=== PATIENT | female | born 1965 | race Two or more races ===

== ENCOUNTER 2018-08-20 05:25 | Observation (INO) | payer BC ==
[2018-08-20] MEDS ORDERED: NS 0.9% 1000 ML** 1,000 ML IV ONE ×2 (05:38→08:52)
[2018-08-20] MEDS ORDERED: Ondansetron INJ* 2 MG/ML VIAL IV ONE (05:38)
[2018-08-20] MEDS ORDERED: Morphine 4 MG/ML VIAL (1 ml) 4 MG/ML VIAL IV ONE ×3 (05:38→08:52)
[2018-08-20 06:07] LABS: ABS Basophils 0 10^3/ul (0-0.2); ABS Eosinophils 0 10^3/ul (0-0.6); ABS Lymphocytes 1.3 10^3/ul (1.0-4.8); ABS Monocytes 0.2 10^3/ul (0-0.8); ABS Neutrophils 6.2 10^3/ul (1.5-7.7); ABS Nucleated RBC 0 10^3/ul; Eosinophil % 0.5 %; Hematocrit 41 % (33-41); Hemoglobin 13.7 g/dL (12.0-16.0); Lymphocyte % 17.1 %; Mean Corpuscular HGB Conc 34 g/dL (31-36); Mean Corpuscular Hemoglobin 30 pg (27-31); Mean Corpuscular Volume 89 fL (80-97); Mean Platelet Volume 8.2 fL (7.4-10.4); Nucleated Red Blood Cells % 0; Platelet Count 215 10^3/uL (150-450); Red Blood Count 4.54 10^6 /uL (3.70-4.87); Red Cell Distribution Width 13 % (10.5-15); White Blood Count 7.8 10^3/uL (3.5-10.8)
[2018-08-20 06:15] LABS: INR 0.86 (0.77-1.02)
[2018-08-20 06:29] LABS: Albumin 3.9 g/dL (3.2-5.2); Albumin/Globulin Ratio 1.4 (1-3); BUN/Creatinine Ratio 33.9 (8-20); C Reactive Protein 3.07 mg/L (<8.01); Calcium 9.2 mg/dL (8.6-10.3); EGFR African American 121.4 (>60); EGFR Non-African American 100.3 (>60); Globulin 2.7 g/dL (2-4); Potassium 3.7 mmol/L (3.5-5.0); Total Bilirubin 0.5 mg/dL (0.2-1.0); Total Protein 6.6 g/dL (6.4-8.9)
[2018-08-20] MEDS ORDERED: Iohexol 300* (CONTRAST) 10 ML SDV IV ONE (06:35)
[2018-08-20 06:54] LABS: Urine Appearance Clear; Urine Bilirubin Negative (Negative); Urine Blood Negative (Negative); Urine Color Yellow; Urine Glucose Negative (Negative); Urine Ketones Negative (Negative); Urine Nitrite Negative (Negative); Urine Protein Negative (Negative); Urine Urobilinogen Negative (Negative)
--- NOTE | 2018-08-20 09:17 | ED ---
Abdominal Pain/Female - HPI Summary HPI Summary: Patient is a 52-year-old female presenting to the ED with mid abdominal pain which is severe in nature which started occurring 1 hour after eating [place] food. She states she ate this food at about 11 PM and states at midnight she began to feel severe abdominal pain. She denies any nausea or vomiting. Denies any constipation or diarrhea. Last bowel movement was yesterday and she had approximately 2-3 bowel movements which were small and hard. She denies any history of constipation. She does have a history of a gastric sleeve for years ago by a general surgeon, Dr. Dobson in [place]. She states she has not had any issues since her gastric sleeve surgery and has had no history of bowel obstructions or known adhesions. She denies any fevers, sweats, chills. She denies any CP or SOB. She states she continues to pass gas and denies any burping. She feels there may be a piece of food that is stuck due to her gastric sleeve. She is otherwise healthy and takes no medications regularly. - History of Current Complaint Chief Complaint: EDAbdPain Stated Complaint: ABD PAIN PER PT Time Seen by Provider: 08/20/18 05:31 Hx Obtained From: Patient ?: No Onset/Duration: Sudden Onset Timing: Constant Severity Initially: Severe Severity Currently: Severe Pain Intensity: 10 Pain Scale Used: 0-10 Numeric Location: Diffuse Radiates: No Character: Sharp Aggravating Factor(s): Nothing Alleviating Factor(s): Nothing - Risk Factors Ectopic Risk Factor: Negative Ovarian Torsion Risk Factor: Negative Allergies/Adverse Reactions: Allergies Allergy/AdvReac Type Severity Reaction Status Date / Time codeine Allergy Unknown Verified 08/20/18 06:11 Reaction Details NSAIDS (Non-Steroidal Allergy See Comment Verified 08/20/18 05:28 Anti-Inflamma ofloxacin Allergy Unknown Verified 08/20/18 06:11 Reaction Details anesthesia Allergy Unknown Uncoded 08/20/18 05:27 Reaction Details Home Medications: Home Medications Multivitamin [Multivitamins] 1 cap PO DAILY 08/20/18 [History Confirmed 08/20/18 ] PMH/Surg Hx/FS Hx/Imm Hx Previously Healthy: Yes Endocrine/Hematology History: Denies: Hx Diabetes Cardiovascular History: Denies: Hx Hypertension History: Denies: Hx Renal Disease - Cancer History Hx Chemotherapy: No Hx Radiation Therapy: No - Surgical History Surgery Procedure, Year, and Place: GASTRIC SLEEVE 2014 - Immunization History Hx Pertussis Vaccination: No Immunizations Up to Date: Yes Infectious Disease History: No Infectious Disease History: Denies: Traveled Outside the [place] in Last 30 Days - Social History Occupation: Employed Full-time Lives: With Family Alcohol Use: None Hx Substance Use: No Substance Use Type: Reports: None Hx Tobacco Use: No Smoking Status (MU): Never Smoked Tobacco Review of Systems Constitutional: Negative Negative: Fever, Chills, Fatigue, Skin Diaphoresis Negative: Palpitations, Chest Pain Negative: Shortness Of Breath, Cough Positive: Abdominal Pain - diffuse. Negative: Vomiting, Diarrhea, Nausea Genitourinary: Negative Positive: no symptoms reported, see HPI Negative: Arthralgia, Myalgia Skin: Negative All Other Systems Reviewed And Are Negative: Yes Physical Exam Triage Information Reviewed: Yes Vital Signs On Initial Exam: Initial Vitals Temp Pulse Resp BP Pulse Ox 98.4 F 93 18 158/79 98 08/20/18 05:26 08/20/18 05:26 08/20/18 05:26 08/20/18 05:26 08/20/18 05:26 Vital Signs Reviewed: Yes Appearance: Positive: Well-Appearing, Well-Nourished, Pain Distress Skin: Positive: Warm, Skin Color Reflects Adequate Perfusion Head/Face: Positive: Normal Head/Face Inspection Eyes: Positive: EOMI, Conjunctiva Clear Neck: Positive: No Lymphadenopathy Respiratory/Lung Sounds: Positive: Clear to Auscultation, Breath Sounds Present Cardiovascular: Positive: RRR, Pulses are Symmetrical in both Upper and Lower Extremities Abdomen Description: Positive: Other: - Tenderness throughout, most notably to the upper quadrants bilaterally, no suprapubic tenderness Bowel Sounds: Positive: Present Musculoskeletal: Positive: Normal, Strength/ROM Intact Neurological: Positive: Sensory/Motor Intact Diagnostics - Vital Signs Vital Signs Temp Pulse Resp BP Pulse Ox 08/20/18 09:02 97.6 F 08/20/18 08:59 16 08/20/18 07:25 83 124/74 98 08/20/18 07:01 72 98 08/20/18 06:55 79 123/81 98 08/20/18 06:32 18 08/20/18 06:25 87 140/84 100 08/20/18 06:00 88 100 08/20/18 05:55 95 154/87 100 08/20/18 05:52 22 08/20/18 05:26 98.4 F 93 18 158/79 98 - Laboratory Lab Results: Lab Results 08/20/18 08/20/18 08/20/18 Range/Units 05:59 05:59 06:00 WBC 7.8 (3.5-10.8) 10^3/uL RBC 4.54 (3.70-4.87) 10^6 /uL Hgb 13.7 (12.0-16.0) g/dL Hct 41 (33-41) % MCV 89 (80-97) fL MCH 30 (27-31) pg MCHC 34 (31-36) g/dL RDW 13 (10.5-15) % Plt Count 215 (150-450) 10^3/uL MPV 8.2 (7.4-10.4) fL Neut % (Auto) 79.0 % Lymph % (Auto) 17.1 % [place] % (Auto) 3.2 % Eos % (Auto) 0.5 % Baso % (Auto) 0.2 % Absolute Neuts (auto) 6.2 (1.5-7.7) 10^3/ul Absolute Lymphs (auto) 1.3 (1.0-4.8) 10^3/ul Absolute Monos (auto) 0.2 (0-0.8) 10^3/ul Absolute Eos (auto) 0 (0-0.6) 10^3/ul Absolute Basos (auto) 0 (0-0.2) 10^3/ul Absolute Nucleated RBC 0 10^3/ul Nucleated RBC % 0 INR (Anticoag Therapy) 0.86 (0.77-1.02) Sodium 139 (135-145) mmol/L Potassium 3.7 (3.5-5.0) mmol/L Chloride 109 (101-111) mmol/L Carbon Dioxide 25 (22-32) mmol/L Anion Gap 5 (2-11) mmol/L BUN 21 (6-24) mg/dL Creatinine 0.62 (0.51-0.95) mg/dL Est GFR ( Amer) 121.4 (>60) Est GFR (Non-Af Amer) 100.3 (>60) BUN/Creatinine Ratio 33.9 H (8-20) Glucose 138 H (70-100) mg/dL Lactic Acid (0.5-2.0) mmol/L Calcium 9.2 (8.6-10.3) mg/dL Magnesium 2.0 (1.9-2.7) mg/dL Total Bilirubin 0.50 (0.2-1.0) mg/dL AST 19 (13-39) U/L ALT 19 (7-52) U/L Alkaline Phosphatase 64 (34-104) U/L C-Reactive Protein 3.07 (<8.01) mg/L Total Protein 6.6 (6.4-8.9) g/dL Albumin 3.9 (3.2-5.2) g/dL Globulin 2.7 (2-4) g/dL Albumin/Globulin Ratio 1.4 (1-3) Lipase 37 (11.0-82.0) U/L Urine Color Urine Appearance Urine pH (5-9) Ur Specific [place] (1.010-1.030) Urine Protein (Negative) Urine Ketones (Negative) Urine Blood (Negative) Urine Nitrate (Negative) Urine Bilirubin (Negative) Urine Urobilinogen (Negative) Ur Leukocyte Esterase (Negative) Urine Glucose (Negative) 08/20/18 08/20/18 Range/Units 06:00 06:43 WBC (3.5-10.8) 10^3/uL RBC (3.70-4.87) 10^6 /uL Hgb (12.0-16.0) g/dL Hct (33-41) % MCV (80-97) fL MCH (27-31) pg MCHC (31-36) g/dL RDW (10.5-15) % Plt Count (150-450) 10^3/uL MPV (7.4-10.4) fL Neut % (Auto) % Lymph % (Auto) % [place] % (Auto) % Eos % (Auto) % Baso % (Auto) % Absolute Neuts (auto) (1.5-7.7) 10^3/ul Absolute Lymphs (auto) (1.0-4.8) 10^3/ul Absolute Monos (auto) (0-0.8) 10^3/ul Absolute Eos (auto) (0-0.6) 10^3/ul Absolute Basos (auto) (0-0.2) 10^3/ul Absolute Nucleated RBC 10^3/ul Nucleated RBC % INR (Anticoag Therapy) (0.77-1.02) Sodium (135-145) mmol/L Potassium (3.5-5.0) mmol/L Chloride (101-111) mmol/L Carbon Dioxide (22-32) mmol/L Anion Gap (2-11) mmol/L BUN (6-24) mg/dL Creatinine (0.51-0.95) mg/dL Est GFR ( Amer) (>60) Est GFR (Non-Af Amer) (>60) BUN/Creatinine Ratio (8-20) Glucose (70-100) mg/dL Lactic Acid 1.6 (0.5-2.0) mmol/L Calcium (8.6-10.3) mg/dL Magnesium (1.9-2.7) mg/dL Total Bilirubin (0.2-1.0) mg/dL AST (13-39) U/L ALT (7-52) U/L Alkaline Phosphatase (34-104) U/L C-Reactive Protein (<8.01) mg/L Total Protein (6.4-8.9) g/dL Albumin (3.2-5.2) g/dL Globulin (2-4) g/dL Albumin/Globulin Ratio (1-3) Lipase (11.0-82.0) U/L Urine Color Yellow Urine Appearance Clear Urine pH 8.0 (5-9) Ur Specific [place] 1.010 (1.010-1.030) Urine Protein Negative (Negative) Urine Ketones Negative (Negative) Urine Blood Negative (Negative) Urine Nitrate Negative (Negative) Urine Bilirubin Negative (Negative) Urine Urobilinogen Negative (Negative) Ur Leukocyte Esterase Negative (Negative) Urine Glucose Negative (Negative) Result Diagrams: 08/20/18 06:00 08/20/18 05:59 Lab Statement: Any lab studies that have been ordered have been reviewed, and results considered in the medical decision making process. Abdominal Pain Fem Course/Dx - Course Course Of Treatment: During this course of treatment, the patient is evaluated for mid severe abdominal pain. She has a gastric sleeve history [address] abdomen and pelvis obtained which shows a partial small bowel obstruction due to air-fluid levels in the left upper quadrant. Patient is having severe and diffuse pain most notably to the upper quadrants despite 3 rounds of 4 mg IV morphine. She is also given 4 mg IV Zofran. She is given fluids. She is made NPO. Labs obtained which are unremarkable. Patient is afebrile, not tachycardic and vital signs are otherwise stable. UA unremarkable. Discussed case with Dr. Armas. We'll admit for pain control as well as partial possible small bowel obstruction. - Diagnoses Differential Diagnosis: Positive: Other - Partial bowel obstruction, abdominal pain, constipation Provider Diagnoses: Partial small bowel obstruction - Provider Notifications Discussed Care Of Patient With: Debra Armas Discharge - Sign-Out/Discharge Documenting (check all that apply): Patient Departure Patient Received Moderate/Deep Sedation with Procedure: No - Discharge Plan Condition: Fair Disposition: ADMITTED TO [facility] Referrals: Omaira Bartlett MD [Primary Care Provider] - - Billing Disposition and Condition Condition: FAIR Disposition: Admitted to [facility]
[2018-08-20] MEDS ORDERED: Ondansetron INJ* 2 MG/ML VIAL IV PRN (10:11)
[2018-08-20] MEDS ORDERED: Fluticasone NASAL SPRAY 50MCG* 16 gm SPRAY BTL BOTH NARES PRN (10:17)
[2018-08-20] MEDS: Pantoprazole IV* 40 MG IV SCH (11:24)
[2018-08-20] MEDS: NS 0.9% 1000 ML** 1,000 ML IV SCH (11:24)
--- NOTE | 2018-08-20 12:48 | HP ---
CC: Dr. Omaira Bartlett; Dr. Diaz* HISTORY AND PHYSICAL: DATE OF ADMISSION: 08/20/18 PRIMARY CARE PROVIDER: Dr. Omaira Bartlett. CHIEF COMPLAINT: Abdominal pain. HISTORY OF PRESENT ILLNESS: Mrs. Reilly is a 52-year-old female with history of gastric bypass surgery in [place] approximately 5 years ago, who presented to the hospital complaining of abdominal pain that developed last night. Please note that the patient received a total of 12 mg of morphine intravenously in the emergency department and currently is very lethargic due to painkillers and the information is gathered mostly from the provider, who saw the patient prior to the administration of the narcotics as well as the patient's daughter who is present by the bedside. The patient's abdominal pain occurred last night. There was no nausea or vomiting. Apparently, she had been passing flatus up to the time of her ED stay. Her last bowel movement was yesterday, and she usually is constipated. Her abdominal pain, when she wakes up, she states that it is "so-so." She is going to be placed on observation with diagnosis of partial small bowel obstruction. PAST MEDICAL HISTORY: Once again please note that the patient is very lethargic and most of the medical history is obtained from patient's daughter and medical records. 1. The patient has a history of vitamin D deficiency. 2. History of vitamin B deficiency. 3. History of C5-C6 spinal surgery. 4. History of erosive gastritis in the past. 5. History of gastric sleeve surgery in [place] 4 to 5 years ago. MEDICATIONS AT HOME: Include: 1. Flonase nasal spray 1 spray both nostrils daily p.r.n. 2. Multivitamin 1 tablet daily. 3. Vitamin B12 1000 mcg daily. 4. Calcium carbonate with vitamin D 1 tablet daily. ALLERGIES: CODEINE and NONSTEROIDAL ANTIINFLAMMATORY medications as well as OFLOXACIN. The patient also was noted to be sensitive to anesthesia in the past. FAMILY HISTORY: Obtained from medical records. Mother with history of diabetes and heart disease. Father with heart disease. 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 There is no history of alcohol, tobacco or drug use as per the patient's daughter . REVIEW OF SYSTEMS: Very limited and as per in the history of present illness. The remaining review of systems was not able to be obtained due to the patient' s marked lethargy. PHYSICAL EXAMINATION GENERAL: The patient is a pleasant 52-year-old female, who appears in no acute distress. The patient is lethargic and sedated. Currently, she is minimally verbal, but she is aware that she is in the hospital and she knows her date of . VITAL SIGNS: Blood pressure of 134/86, heart rate of 78 and regular, respiratory rate 16, oxygen saturation 98% on room air, temperature of 97.6. HEENT: Head atraumatic, normocephalic. Eyes: Pupils are equal and reactive to light and accommodation. Oropharynx is clear. Mucosa dry. NECK: Supple. No JVD. No bruits bilaterally. RESPIRATORY: Clear to auscultation bilaterally. CARDIOVASCULAR: Regular rate and rhythm. No murmur. ABDOMEN: Soft and tender in the epigastrium with no rebound. No guarding. Bowel sounds are present in all 4 quadrants. High-pitched bowel sounds are noted on auscultation of the left mid abdomen. EXTREMITIES: There is no edema. Pulses are +2 bilaterally. No clubbing and cyanosis. NEURO EVALUATION: Speech clear. Cranial nerves II through XII grossly intact. Motor strength is 5/5 in bilaterally. The patient is sedated. LABORATORY DATA: Sodium of 139, potassium of 3.7, chloride 109, carbon dioxide 25, BUN 21, creatinine 0.62. Liver function test unremarkable. Glucose of 138, lactic acid 1.6. CBC: White blood cell count 7.8, hemoglobin 13.7, hematocrit 41 and platelets 215. Urinalysis is grossly unremarkable. The patient's CT of abdomen and pelvis, impression: "In the left upper abdomen , there are air-fluid levels. In the small bowel with the top normal dilatation , that does not meet size of pathologic dilatation. Please correlate to signs and symptoms of bowel obstruction. A homogeneously hypodense liver relative to the skin could be seen in the setting of hepatic steatosis." ASSESSMENT AND PLAN: The patient is a 52-year-old female with a history of gastric bypass surgery approximately 4 to 5 years ago, who now presents with partial small bowel obstruction. The patient is going to be placed on observation and treated conservatively with intravenous fluids. PPI intravenously for GI prophylaxis while on limited diet with sips of clears. I am going to ask Dr. Diaz from General Surgery to see patient in consultation. For DVT prophylaxis, the patient is low risk and SCDs are going to be provided while in bed. The patient's code status is full and her surrogate is her and her daughter as mentioned above. TIME SPENT: Approximately 62 minutes was spent on admission of this patient. More than half that time was spent [id number] with the patient during the evaluation in the emergency department. [id number]/CPS #: [id number] MTDD
[2018-08-20] MEDS: Morphine INJ* 2 MG/ML 1 ML SYRINGE (TWO MG - NEW SYRINGE VERSION) IV PRN ×3 (12:56→20:59)
--- NOTE | 2018-08-20 13:38 | CONS ---
CC: [facility] CONSULTATION REPORT: DATE OF CONSULT: 08/20/18 REFERRING PROVIDER: Dr. Debra Armas, hospitalist. REASON FOR CONSULT: Generalized abdominal pain. HISTORY OF PRESENT ILLNESS: Mrs. Roxana Reilly is a heathy 52-year-old woman who presented to the emergency room with generalized abdominal discomfort that occurred about an hour after eating some [place] food late last night. She was driving back from [place] with her daughter and they had picked up some to go food and around midnight, she developed severe abdominal discomfort. She denied nausea or vomiting. There was no diarrhea and she did not feel distended. She had no fever, shakes, or chills and had no urinary complaints. No one else in the family was sick. She states she had a last bowel movement yesterday, which was normal for her. She has a history of a gastric sleeve several years ago by Dr. Dobson in [place] and lost about 90 pounds according to the daughter. She has not had any other issues with the gastric sleeve since that time and has had no admissions or complaints of chronic or acute abdominal discomfort. She states that she has been continuing to pass some gas. Denied any belching. She is otherwise healthy and takes no medications regularly. In the emergency room, she was noted to be afebrile with the heart rate in the high 60s and low 70s. She is hemodynamically stable. Laboratory values included normal white blood cell count of 7.8 without any shift or differential. Electrolytes, BUN and creatinine were normal. She had a lactic acid of 1.6. Liver transaminase, total bilirubin, and lipase were all unremarkable. She did undergo a CT scan of the abdomen and pelvis with oral and IV contrast. I did review this as well as review this with Dr. Cummins from Radiology that shows contrast in the distended stomach without evidence of gastric outlet obstruction. There was some mildly dilated proximal small bowel, but no evidence of obstruction with oral contrast that passes down 2/3rd through the intestine. There is air and stool throughout the colon. The appendix appeared to be unremarkable. There is no evidence of free air, fluid, or other acute finding noted. Due to her persistent discomfort after receiving morphine in the emergency room and the findings on the CT scan, she has been admitted to this hospitalist service and surgical consultation was obtained. PAST MEDICAL HISTORY: Morbid obesity. PAST SURGICAL HISTORY: 1. section x2. 2. Laparoscopic gastric sleeve operation in 2015. MEDICATIONS: Multivitamins daily. ALLERGIES: She is allergic to CODEINE and NONSTEROIDAL PAIN MEDICINE. SOCIAL HISTORY: She does not smoke. She does not use alcohol. 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 She lives with her . Denies substance abuse. REVIEW OF SYSTEMS: Denies fevers, chills, or diaphoresis. Cardiovascular: She has had no chest pain or palpitations. Pulmonary: No wheezing or hemoptysis. GI: As per above. She does not have chronic abdominal pain. : No urgency or hematuria. PHYSICAL EXAM: Temperature 97.6, pulse 66, blood pressure 130/85. In general, she is a well developed, healthy appearing female, who is somewhat sleepy from receiving morphine. She does respond to questions and does complain of some abdominal discomfort. Oral mucosa is slightly dry. Her lungs are clear to auscultation with normal respiratory effort. Heart was regular rate and rhythm without murmurs, rubs, or gallops. Her abdomen is soft and nondistended. She has well-healed low transverse incision without hernia. There are several laparoscopic incisions in the upper abdomen without hernia. Her abdomen is soft and nondistended. She has normoactive bowel sounds throughout. She has some tenderness in the upper abdomen without rebound or rigidity. There is no peritoneal irritation in all 4 quadrants. IMPRESSION: Abdominal discomfort, however, rather sudden onset, developed last night after eating takeout [place] food. She has had no nausea, vomiting or diarrhea. She has had no fevers. Workup includes normal white blood cell count and chemistry labs. CT scan as per above. She has undergone a gastric sleeve operation in the past and CT scan shows no convincing evidence of bowel obstruction or other acute findings. Exam is rather benign, although she continues to complain of generalized abdominal pain and receive opioids in the emergency room. PLAN/RECOMMENDATIONS: 1. The patient to be admitted to the hospitalist service, started on IV fluids and kept n.p.o. 2. At this point, I do not believe there she has any indications for acute surgical intervention. CAT scan is rather unrevealing and with normal laboratory workup, no evidence of tachycardia or peritonitis, I would recommend observation for now and serial abdominal examinations. Certainly if her pain persist or worsens or if she develops seizure, tachycardia, leukocytosis that would warrant consideration of the laparoscopy. I discussed this with the patient, although she is quite sedated from the narcotic she received, her daughter was present and I discussed my findings of this consultation and plan of care. Also discussed this with Dr. Armas from the hospitalist service. Thank you for the consultation. We will follow her closely with you. [id number]/CPS #: [id number] AKIRA
[2018-08-20] MEDS ORDERED: Glycerin ADULT SUPP PR PRN (20:50)
[2018-08-20] MEDS ORDERED: Scopolamine 1.5 mg* PATCH TRANSDERM SCH (22:00)
[2018-08-21 07:27] LABS: ABS Basophils 0 10^3/ul (0-0.2); ABS Eosinophils 0 10^3/ul (0-0.6); ABS Lymphocytes 1.3 10^3/ul (1.0-4.8); ABS Monocytes 0.5 10^3/ul (0-0.8); ABS Neutrophils 6.9 10^3/ul (1.5-7.7); ABS Nucleated RBC 0 10^3/ul; Eosinophil % 0.4 %; Hematocrit 40 % (33-41); Hemoglobin 13.2 g/dL (12.0-16.0); Lymphocyte % 14.9 %; Mean Corpuscular HGB Conc 33 g/dL (31-36); Mean Corpuscular Hemoglobin 30 pg (27-31); Mean Corpuscular Volume 90 fL (80-97); Mean Platelet Volume 8.5 fL (7.4-10.4); Nucleated Red Blood Cells % 0; Platelet Count 214 10^3/uL (150-450); Red Blood Count 4.39 10^6 /uL (3.70-4.87); Red Cell Distribution Width 13 % (10.5-15); White Blood Count 8.7 10^3/uL (3.5-10.8)
[2018-08-21 07:46] LABS: BUN/Creatinine Ratio 21.6 (8-20); Calcium 8.5 mg/dL (8.6-10.3); EGFR African American 152.1 (>60); EGFR Non-African American 125.7 (>60); Potassium 3.7 mmol/L (3.5-5.0)
--- NOTE | 2018-08-21 08:12 | PN ---
Progress Note - Progress Note Date of Service: 08/21/18 SOAP: Subjective: She feels much better this morning, mild abdominal pain only, no N/V Has appetite, had small BM. Objective: Temp Pulse Resp BP Pulse Ox 98.6 F 109 19 130/73 100 08/21/18 03:15 08/21/18 03:15 08/21/18 03:15 08/21/18 03:15 08/21/18 03:15 PEX: Comfortable Abd is soft and non-distended. Bowel sounds are present, no tenderness or guarding. Laboratory Results - last 24 hr 08/21/18 08/21/18 07:07 07:07 WBC 8.7 RBC 4.39 Hgb 13.2 Hct 40 MCV 90 MCH 30 MCHC 33 RDW 13 Plt Count 214 MPV 8.5 Neut % (Auto) 79.2 Lymph % (Auto) 14.9 [place] % (Auto) 5.3 Eos % (Auto) 0.4 Baso % (Auto) 0.2 Absolute Neuts (auto) 6.9 Absolute Lymphs (auto) 1.3 Absolute Monos (auto) 0.5 Absolute Eos (auto) 0 Absolute Basos (auto) 0 Absolute Nucleated RBC 0 Nucleated RBC % 0 Sodium 140 Potassium 3.7 Chloride 111 Carbon Dioxide 25 Anion Gap 4 BUN 11 Creatinine 0.51 Est GFR ( Amer) 152.1 Est GFR (Non-Af Amer) 125.7 BUN/Creatinine Ratio 21.6 H Glucose 101 H Calcium 8.5 L Assessment: Abd pain-improved, exam benign,normal labs- Plan: No surgical intervention. Advance diet as tolerated D/C today?
[2018-08-21] MEDS: NS 0.9% 1000 ML** 1,000 ML IV SCH (08:57)
[2018-08-21] MEDS: Pantoprazole IV* 40 MG IV SCH (08:57)
[2018-08-21] MEDS ORDERED: Bisacodyl EC TAB* 5 MG PO ONE (09:10)
[2018-08-21 12:26] VITALS: BP 110/58
[2018-08-21] MEDS ORDERED: Magnesium CITRATE* 300 ML BTL PO ONE (14:35)
--- NOTE | 2018-08-21 22:26 | DS ---
CC: Dr. Bartlett * DISCHARGE SUMMARY: DATE OF ADMISSION: 08/20/18 DATE OF DISCHARGE: 08/21/18 PRIMARY CARE PROVIDER: Dr. Bartlett. DISCHARGE DIAGNOSIS: Partial small-bowel obstruction with resolution. MEDICATIONS AT DISCHARGE: Include: 1. Omeprazole 20 mg daily. 2. Multivitamin 1 tablet daily. 3. Flonase 15 mcg nasally p.r.n. 4. Vitamin B12 at 1000 mcg daily. 5. Calcium carbonate and vitamin D 1 tablet daily. 6. The patient is also to use [id number] laxative of her choice on an as - needed basis. CONSULTATIONS DURING HOSPITAL STAY: Included Dr. Diaz from surgery. LABORATORY DATA AND STUDIES PERFORMED DURING THE HOSPITAL STAY: On 08/21/18, white blood cell count was 8.7, hemoglobin of 13.2, hematocrit of 40, and platelets 214. Sodium 140, potassium 3.7, chloride 111, carbon dioxide 25, BUN 11, creatinine 0.51. CT of the abdomen and pelvis obtained on admission, impression: "In the left upper abdomen, there are air-fluid levels in the small-bowel with abnormal dilatation that does not meet size of pathologic dilatation. Please correlate with signs and symptoms of partial small-bowel obstruction. 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 A CT of the abdomen showed likely partial small-bowel obstruction. She was seen by Dr. Diaz from surgery. Recommendation was to continue medical treatment with intravenous fluids and limitation of diet. The patient was on sips of liquids throughout the night. She had glycerin suppository rectally and she had a small bowel movement. Today, she feels much better, although she still feels constipated. She received a dose of Dulcolax with no great results and she is going to get a dose of mag citrate. Having said that, she tolerated her diet without any problems and she has minimal epigastric tenderness on evaluation today. Her abdominal pain basically resolved. She is going to be discharged. Recommendation to follow up with her primary care provider in approximately 4 to 7 days. She is recommended to use laxatives on an as-needed basis over-the- counter. PHYSICAL EXAMINATION: At time of discharge, blood pressure 110/58, heart rate of 76 and regular, respiratory rate 15, oxygen saturation 98% on room air, temperature 97.8. General: The patient is a pleasant 52-year-old female who is in no acute distress. Alert, awake, and oriented x3. HEENT: Head: Atraumatic and normocephalic. Eyes: Pupils are equal, round, and reactive to light and accommodation. Oropharynx clear. Mucosa moist. Neck: Supple. No JVD, no bruits bilaterally. Cardiovascular: Regular rate and rhythm. No murmurs. Respiratory: Clear to auscultation bilaterally. Abdomen: Soft, tender minimally in the epigastric region. No rebound and no guarding. Bowel sounds are present in all 4 quadrants. Extremities: There is no edema. Positive +2 pulses bilaterally. There is no clubbing or cyanosis. On neuro evaluation, speech clear. Cranial nerves II through XII are grossly intact. Motor strength is 5/5 bilaterally. Please note that this is a short summary of the patient's hospital stay. Please refer to further medical records for details. TIME SPENT: Approximately 40 minutes were spent on the patient's discharge. condition at discharge: stable [id number]/[facility] #: [id number] [facility]
[2018-08-23] MEDS ORDERED: Scopolamine PATCH Remove* 1 NOTE MISC PATCH OFF SCH (22:00)
== END 2018-08-21 16:25 | disposition home or self-care (01) | DRG 247 ==
LOC: ED 05:25 → MED 10:29 → INTOOBSV 10:29
PROVIDERS: ADMIT Internal Medicine; ATTEND Internal Medicine
DX: K56.600 Partial intestinal obstruction, unspecified as to cause (principal); K59.00 Constipation, unspecified; E55.9 Vitamin D deficiency, unspecified; E53.9 Vitamin B deficiency, unspecified; K76.0 Fatty (change of) liver, not elsewhere classified; Z88.5 Allergy status to narcotic agent; Z88.8 Allergy status to other drugs, medicaments and biological substances; Z83.3 Family history of diabetes mellitus; Z82.49 Family history of ischemic heart disease and other diseases of the circulatory system; Z90.3 Acquired absence of stomach [part of]; Z68.24 Body mass index [BMI] 24.0-24.9, adult; Z79.899 Other long term (current) drug therapy
CPT/HCPCS: 36415; 74019; 74177; 80048; 80053; 81003; 83605; 83690; 83735; 85025; 85610; 86140; 96365; 96375; 96376; 99284; A9270-GY; G0378; J2270; J2405; Q9967